=== PATIENT | female | born 1960 | race Caucasian/White ===

== ENCOUNTER 2016-10-02 08:28 | Inpatient (IN) | payer OTHER ==
[2016-09-19 08:09] VITALS: BMI 28.0
--- NOTE | 2016-09-19 08:50 | PAT Medication Instructions ---
Service Date Sep 19, 2016. Current Home Medication List Albuterol (Ventolin), 2 PUFFS INH BID PRN for SOB/Wheezing Albuterol Soln (Proventil 0.083% 2.5MG/3ML), 2.5 MG INH QID PRN for SOB/Wheezing Benzonatate (Tessalon Perles), 1-2 CAP PO Q4 PRN for Cough Clonazepam (Klonopin), 0.5 MG PO HS Fluticasone Propionate (Nasal) (Flonase Allergy Relief), 2 SPRAY CABRERA DAILY PRN for PRN Omeprazole (Prilosec), 20 MG PO BID Oxcarbazepine (Trileptal), 600 MG PO BID Promethazine (Phenergan), 25 MG PO Q6HR PRN Tamoxifen Citrate (Tamoxifen Citrate), 20 MG PO QAM Tizanidine (Zanaflex), 4 MG PO TID PRN for Muscle Spasms Venlafaxine Hcl (Effexor), 75 MG PO BID Medication Instructions For Your Scheduled Surgery - Hold the following medications the morning of surgery: Tizanidine (Zanaflex), 4 MG PO TID PRN for Muscle Spasms Benzonatate (Tessalon Perles), 1-2 CAP PO Q4 PRN for Cough - Take the following medications the morning of surgery with a sip of water: Venlafaxine Hcl (Effexor), 75 MG PO BID Omeprazole (Prilosec), 20 MG PO BID Promethazine (Phenergan), 25 MG PO Q6HR PRN (only take if absolutely needed) Fluticasone Propionate (Nasal) (Flonase Allergy Relief), 2 SPRAY CABRERA DAILY PRN for PRN Tamoxifen Citrate (Tamoxifen Citrate), 20 MG PO QAM (not told to stop by surgeon) Albuterol (Ventolin), 2 PUFFS INH BID PRN for SOB/Wheezing (bring with you to hospital on day of surgery) Albuterol Soln (Proventil 0.083% 2.5MG/3ML), 2.5 MG INH QID PRN for SOB/ Wheezing (if needed) Oxcarbazepine (Trileptal), 600 MG PO BID - Take the following medications as scheduled the night before surgery: Venlafaxine Hcl (Effexor), 75 MG PO BID Tizanidine (Zanaflex), 4 MG PO TID PRN for Muscle Spasms Omeprazole (Prilosec), 20 MG PO BID Clonazepam (Klonopin), 0.5 MG PO HS Benzonatate (Tessalon Perles), 1-2 CAP PO Q4 PRN for Cough Albuterol (Ventolin), 2 PUFFS INH BID PRN for SOB/Wheezing (if needed) Albuterol Soln (Proventil 0.083% 2.5MG/3ML), 2.5 MG INH QID PRN for SOB/ Wheezing (if needed) Oxcarbazepine (Trileptal), 600 MG PO BID If you have any questions please call us at [phone] or [phone] ( Janna) or [phone]
--- NOTE | 2016-09-19 09:22 | DIAGNOSTIC IMAGING REPORT ---
CHEST PREADMISSION(PA/LAT) CLINICAL HISTORY: Preoperative chest COMPARISON STUDY: 07/19/2014 FINDINGS: The cardiac and mediastinal contours are normal. There is no evidence of focal pulmonary consolidation. There is no evidence of failure. No pleural effusions are visualized.[ IMPRESSION: No active disease in the chest. Electronically signed by: Trung Monte M.D. 09/19/2016 9:20 AM Dictated Date/Time: 09/19/2016 9:20 AM
[2016-09-19 09:53] LABS: BASO % 0.4 %; BASO ABS # 0.03 K/uL (0-0.2); COMPLETE YES; HEMATOCRIT 37.4 % (37-47); LYMPH ABS # 2.81 K/uL (1.2-3.4); MEAN CELL VOLUME 89.9 fL (80-100); MEAN CORPUSCULAR HEMOGLOBIN 29.1 pg (25-34); MEAN CORPUSCULAR HGB CONC 32.4 g/dl (32-36); MEAN PLATELET VOLUME 11.1 fL (7.4-10.4); NEUT % 48.6 %; PLATELET COUNT 187 K/uL (130-400); RED BLOOD COUNT 4.16 M/uL (4.2-5.4); WHITE BLOOD COUNT 7.03 K/uL (4.8-10.8)
[2016-09-19 10:04] LABS: PARTIAL THROMBOPLASTIN RATIO 0.9; PROTHROMBIN TIME (PATIENT) 10.5 SECONDS (9.0-12.0)
[2016-09-19 10:10] LABS: BUN/CREATININE RATIO 23.2 (10-20); CALCIUM 8.5 mg/dl (8.5-10.1)
[2016-09-19 10:15] LABS: URINE APPEARANCE CLEAR (CLEAR); URINE BILIRUBIN NEG (NEG); URINE COLOR YELLOW; URINE EPITHELIAL CELL AUTO >30 /lpf (0-5); URINE NITRITE NEG (NEG); URINE SPECIFIC GRAVITY 1.036 (1.000-1.030); UROBILINOGEN NEG (NEG)
[2016-09-19 10:17] LABS: MANUAL MICROSCOPIC REQUIRED? NO; REVIEW REQ? NO
[2016-09-19 10:30] LABS: ESTIMATED AVERAGE GLUCOSE 120 mg/dl; HA1C FLAG Normal (Normal)
--- NOTE | 2016-10-01 14:17 | HISTORY & PHYSICAL EXAMINATION ---
DATE OF ADMISSION: 10/02/2016 CHIEF COMPLAINT: Left total knee instability. HISTORY OF PRESENT ILLNESS: The patient is a 56-year-old female who had bilateral total knee arthroplasties performed by an outside physician. Recently, she had an episode of left knee instability where her left knee jumped the post and became stuck in a dislocated position. She had to have this subsequently reduced. She came to Dr. Clark for a second opinion. The decision was made to do a left TKA poly change in an effort to eliminate this instability. 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 PAST SURGICAL HISTORY: Cholecystectomy, thoracic and lumbar spinal fusions x2. MEDICATIONS: Include Phenergan 25 mg q. 6 hours p.r.n. nausea, Klonopin 0.5 mg at bedtime, Trileptal 300 mg twice daily, tizanidine HCL 4 mg 3 times daily p.r.n., tramadol 50 mg q. 8 hours p.r.n., Flonase 2 sprays each nostril daily p.r.n., Proventil 4 times daily, benzonatate 200 mg 3 times daily p.r.n. cough, and Prilosec 20 mg 2 times daily. ALLERGIES: ADHESIVE TAPE, ENVIRONMENTAL ALLERGIES, GABAPENTIN, HYDROMORPHONE, LIPITOR, MORPHINE, ORPHENADRINE CITRATE, AND PREGABALIN. SOCIAL HISTORY AND REVIEW OF SYSTEMS: Noncontributory. PHYSICAL EXAMINATION: GENERAL: Well-nourished and well-developed female who appears her stated age. HEENT: Normocephalic and atraumatic, extraocular movements intact, oropharynx pink and moist. NECK: Supple without adenopathy. LUNGS: Clear to auscultation bilaterally. HEART: Regular rate and rhythm. ABDOMEN: Soft, nontender, nondistended, obese. EXTREMITIES: The upper extremity within normal limits. The left knee demonstrates a well-healed midline incision from her previous arthroplasty. Her knee range of motion is approximately 0-120 degrees. X-RAYS: X-rays were reviewed. She has bilateral Biomet type knee arthroplasties in place. There are no obvious deformities, abnormalities, or lucencies on x-ray. ASSESSMENT: Left total knee instability. PLAN: Risks versus benefits were discussed. Consent was obtained. The patient's primary care physician is Dr. Estrella Jiménez. We will proceed with left total knee revision tibial poly upon preop workup and medical clearance.
[~2016-10-02] VITALS: Ht 193 cm; Wt 104.8 kg
[2016-10-02] VITALS (8 sets, daily range): BP systolic 95–135; BP diastolic 53–78; PULSE 55–76; TEMP 36.4–36.8; O2SAT 94–100; Ht 193 cm; Wt 104.8 kg
[2016-10-02] MEDS: TRANEXAMIC ACID INJ 1,000 MG in SODIUM CHLORIDE 0.9% 100ML 100 ML IV SCH ×2 (06:30→09:56)
--- NOTE | 2016-10-02 07:56 | History & Physical Bridge Note ---
H&P Re-Evaluation Bridge Note: I have examined the patient, reviewed the History & Physical and in the interval since the performance of the History & Physical I have noted the following changes of clinical significance: No changes noted
[~2016-10-02 08:28] MED LIST: ACETAMINOPHEN 500 MG TAB PO SCH; ALBU0.08 INH; ALBUAER2 INH; BENZ100C84 PO; BUPIVACAINE 0.5 % 5 MG/1 ML PF 10ML VIAL ONE; BUPIVACAINE/EPINEPHRINE 0.25% 1:200,000 30 ML VIAL ONE; CEFAZOLIN 2000 MG/60 ML D5W IV SCH; CLON0.5T3 PO; DEXAMETHASONE 4 MG TAB PO SCH; DEXAMETHASONE SOD INJ 4 MG/ML VIAL ONE; FAMOTIDINE 20 MG TAB PO SCH; FLUT0.15 NAE; GABAPENTIN 300 MG CAP PO SCH; LACTATED RINGER'S 1000ML 1,000 ML IV SCH; LACTATED RINGER'S 1000ML 500 ML IV ONE; LACTATED RINGER'S 1000ML IV SCH; METOCLOPRAMIDE HCL 10 MG TAB PO SCH; OMEP20CA9 PO; OXCA300T PO; PROM25TA PO; ROPIVACAINE 5MG/ML 30 ML 150 MG, BUPIVACAINE/EPINEPHR 0.5% MPF 30 ML, KETOROLAC TROMETH... INFIL SCH; TAMO10TA25 PO; TIZA4CAP PO; VENL75TA4 PO
[2016-10-02] MEDS ORDERED: MIDAZOLAM HCL 1 MG/ML 2ML VIAL ONE ×2 (08:32→10:18)
[2016-10-02] MEDS ORDERED: FENTANYL CITRATE INJ 50 MCG/1 ML 2 ML VIAL ONE ×2 (08:32→12:10)
[2016-10-02] MEDS ORDERED: POVIDONE-IODINE OP SOLN 30 ML BTL ONE (09:40)
[2016-10-02] MEDS ORDERED: BACITRACIN 50000 UNIT VIAL ONE (09:41)
[2016-10-02] MEDS ORDERED: BUPIVACAINE/EPINEPHRINE 0.5% MPF 1:200,000 30 ML VIAL ONE (10:23)
[2016-10-02] MEDS ORDERED: PROPOFOL IV EMULSION 10 MG/ML 20 ML VIAL IV ONE (10:27)
[2016-10-02] MEDS ORDERED: LIDOCAINE HCL 2% 2 ML VIAL (20MG/ML) ONE (10:27)
[2016-10-02] MEDS ORDERED: EpHEDrine SULFATE INJ 50 MG/ML AMP IV PRN (11:15)
[2016-10-02] MEDS ORDERED: FENTANYL CITRATE INJ 50 MCG/1 ML 2 ML VIAL IV PRN (11:15)
[2016-10-02] MEDS ORDERED: ATROPINE SULFATE 0.1 MG/ML 5ML SYR IV PRN (11:15)
[2016-10-02] MEDS ORDERED: ONDANSETRON INJ 2 MG/ML 2 ML VIAL IV PRN ×2 (11:15→11:30)
[2016-10-02] MEDS ORDERED: FLUTICASONE PROPIONATE NA SPR 16 GM BTL NAE PRN (11:30)
[2016-10-02] MEDS ORDERED: ALBUTEROL HFA 8 GM INHALER INH PRN (11:30)
[2016-10-02] MEDS ORDERED: ZOLPIDEM TARTRATE 5 MG TAB PO PRN (11:30)
[2016-10-02] MEDS ORDERED: MAGNESIUM HYDROXIDE SUSP 30 ML UDC PO PRN (11:30)
[2016-10-02] MEDS ORDERED: ALUMINUM/MAGNESIUM/SIMETH (MAALOX MAX) 30 ML UDC PO PRN (11:30)
[2016-10-02] MEDS ORDERED: ALBUTEROL 0.083% NEBU SOLN 3 ML VIAL INH PRN (11:30)
[2016-10-02] MEDS ORDERED: BISACODYL 10 MG SUPP PR PRN (11:30)
[2016-10-02] MEDS ORDERED: DiphenhydrAMINE HCL 50 MG/ML VIAL IV PRN (11:30)
--- NOTE | 2016-10-02 11:34 | OPERATIVE REPORT ---
DATE OF OPERATION: 10/02/2016 PREOPERATIVE DIAGNOSIS: Instability total knee left. POSTOPERATIVE DIAGNOSIS: Instability total knee left. PROCEDURE: Revision polyethylene left total knee. SURGEON: Dr. Clark. POLYSOMNOGRAPH TECH: Nii Christiansen PA-C. Mr. Christiansen was essential for all parts of the case including positioning, prepping, draping, surgical oncologist, wound closure and dressing application. ANESTHESIA: Spinal. COMPLICATIONS: None. OPERATION AND FINDINGS: Following induction of spinal anesthesia, the patient's left leg was prepped and draped in usual sterile manner. Limb was exsanguinated with an Esmarch bandage and tourniquet inflated to 300 mmHg. The knee was evaluated and found to have quite a bit of recurvatum. Longitudinal incision was made. Subcutaneous tissue was sharply dissected. Electrocautery was used for hemostasis. Median parapatellar incision was reopened and the medial face of the tibia was cleared of soft tissue. The locking pin was removed from the tibial component and the tibial poly was removed. The removed polyethylene was a size 12. Trial reductions were carried out up to a size 20, which eliminated the patient's excessive recurvatum. The Vanguard post was chosen as the post to be used. The final tibial poly was reinserted. A locking pin was placed and pulsatile irrigation was used to irrigate the knee and wound was closed with #1 Vicryl [id number] sutures to close the extensor mechanism. Subcutaneous tissue was closed using 0 Dexon, and skin was closed with carol. Sterile dressing of Adaptic, 4x4s, ABDs, sterile Webril and double length Joel was applied. The patient tolerated the procedure well. I attest to the content of the Intraoperative Record and any orders documented therein. Any exceptions are noted below. MTDD
--- NOTE | 2016-10-02 12:26 | DIAGNOSTIC IMAGING REPORT ---
TWO VIEWS LEFT KNEE CLINICAL HISTORY: Postoperative examination. FINDINGS: AP and crosstable lateral portable views of the left knee are obtained. A left knee arthroplasty is in near anatomic alignment. There has been undersurface remodeling of the patella. No acute fracture is seen. There are expected postoperative changes around the knee including skin clips, a surgical drain, soft tissue edema, and subcutaneous gas. IMPRESSION: Expected postoperative changes status post left knee arthroplasty. No acute fracture is seen. Electronically signed by: Jose Archuleta M.D. 10/02/2016 12:25 PM Dictated Date/Time: 10/02/2016 12:24 PM
--- NOTE | 2016-10-02 13:06 | Anesthesiology Progress Note ---
Anesthesia Post Op Note Date & Time Oct 02, 2016 at 13:07 Vital Signs Pain Intensity: 2 Vital Signs Past 12 Hours Date Time Temp Pulse Resp B/P Pulse Ox O2 Delivery O2 Flow Rate FiO2 10/02/16 13:00 58 15 129/74 97 Nasal Cannula 2 10/02/16 12:45 65 16 145/83 98 Nasal Cannula 2 10/02/16 12:30 65 20 130/69 97 Nasal Cannula 2 10/02/16 12:25 36.3 58 15 113/63 96 Nasal Cannula 2 10/02/16 12:15 60 15 121/68 97 Nasal Cannula 2 10/02/16 12:05 58 14 115/72 99 Nasal Cannula 2 10/02/16 11:55 60 14 140/69 99 Nasal Cannula 2 10/02/16 11:45 60 18 135/72 99 Nasal Cannula 2 10/02/16 11:35 68 16 123/66 100 Nasal Cannula 2 10/02/16 11:25 36.2 73 16 125/74 97 Nasal Cannula 2 10/02/16 09:04 36.7 76 18 119/63 96 Room Air Notes Mental Status: alert / awake / arousable, participated in evaluation Pt Amnestic to Procedure: Yes Nausea / Vomiting: adequately controlled Pain: adequately controlled Airway Patency, RR, SpO2: stable & adequate BP & HR: stable & adequate Hydration State: stable & adequate Neuraxial Anesthesia: was administered, sensory block is resolving Anesthetic Complications: no major complications apparent
[2016-10-02] MEDS: OXYCODONE HCL IR 5 MG TAB (IMMEDIATE RELEASE) PO PRN ×2 (14:09→18:03)
[2016-10-02] MEDS: D5W AND 1/2NSS + 20MEQ KCL 1,000 ML IV SCH (16:23)
[2016-10-02] MEDS: HYDROmorphone INJ 0.5 MG/0.5 ML SYR IV PRN (16:42)
[2016-10-02] MEDS: FERROUS GLUCONATE 324 MG TAB PO SCH (18:02)
[2016-10-02] MEDS: CEFAZOLIN IV 2,000 MG in DEXTROSE 5% 50ML 50 ML IV SCH (18:03)
[2016-10-02] MEDS: CLONAZEPAM 0.5 MG TAB PO SCH (21:54)
[2016-10-02] MEDS: OXYCODONE HCL 10 MG TABCR (OXYCONTIN) PO SCH (21:55)
[2016-10-02] MEDS: ACETAMINOPHEN 500 MG TAB PO SCH (21:55)
[2016-10-02] MEDS: PANTOprazole SOD 40 MG TAB PO SCH (21:56)
[2016-10-02] MEDS: OXCARBAZEPINE 150 MG TAB PO SCH (21:56)
[2016-10-02] MEDS: DOCUSATE SODIUM 100 MG CAP PO SCH (21:57)
[2016-10-02] MEDS: VENLAFAXINE HCL 37.5 MG TAB PO SCH (21:57)
[2016-10-02] MEDS: ASPIRIN 81 MG ECTAB PO SCH (21:57)
[2016-10-02] MEDS: SENNA 8.6 MG TAB PO SCH (21:58)
[2016-10-03] MEDS: D5W AND 1/2NSS + 20MEQ KCL 1,000 ML IV SCH (01:27)
[2016-10-03] MEDS: CEFAZOLIN IV 2,000 MG in DEXTROSE 5% 50ML 50 ML IV SCH (01:30)
[2016-10-03 02:55] VITALS: BP 92/51; PULSE 60; TEMP 36.9; O2SAT 93
[2016-10-03] MEDS: OXYCODONE HCL IR 5 MG TAB (IMMEDIATE RELEASE) PO PRN ×3 (04:22→17:00)
[2016-10-03] MEDS: ACETAMINOPHEN 500 MG TAB PO SCH ×3 (06:13→21:19)
[2016-10-03 07:08] LABS: HEMATOCRIT 32.3 % (37-47); MEAN CELL VOLUME 86.8 fL (80-100); MEAN CORPUSCULAR HEMOGLOBIN 28.8 pg (25-34); MEAN CORPUSCULAR HGB CONC 33.1 g/dl (32-36); MEAN PLATELET VOLUME 10.5 fL (7.4-10.4); PLATELET COUNT 178 K/uL (130-400); RED BLOOD COUNT 3.72 M/uL (4.2-5.4)
--- NOTE | 2016-10-03 07:27 | Orthopedic Progress Note ---
Orthopedic Progress Note Date of Service Oct 03, 2016. Subjective Post OP Day: 1 Reports: feeling well Objective N/V intact, dressing C/D/I (Hemovac in place), toes mobile Date Time Temp Pulse Resp B/P Pulse Ox O2 Delivery O2 Flow Rate FiO2 10/03/16 02:55 36.9 60 16 92/51 93 CPAP 10/02/16 23:56 60 18 95 BiPAP/CPAP 21 10/02/16 23:50 Room Air CPAP 10/02/16 23:26 36.6 66 16 95/53 94 CPAP 10/02/16 19:32 36.6 58 18 129/78 95 Room Air 10/02/16 19:20 Room Air 10/02/16 16:15 Room Air 10/02/16 16:02 36.4 55 18 116/70 100 Nasal Cannula 2.0 10/02/16 14:15 36.8 61 18 133/77 100 Nasal Cannula 2.0 10/02/16 13:45 36.6 57 19 135/70 99 Nasal Cannula 2.0 10/02/16 13:15 Nasal Cannula 2.0 10/02/16 13:15 Nasal Cannula 2.0 10/02/16 13:15 36.6 63 18 113/68 98 Nasal Cannula 2.0 10/02/16 13:00 58 15 129/74 97 Nasal Cannula 2 10/02/16 12:45 65 16 145/83 98 Nasal Cannula 2 10/02/16 12:30 65 20 130/69 97 Nasal Cannula 2 10/02/16 12:25 36.3 58 15 113/63 96 Nasal Cannula 2 10/02/16 12:15 60 15 121/68 97 Nasal Cannula 2 10/02/16 12:05 58 14 115/72 99 Nasal Cannula 2 10/02/16 11:55 60 14 140/69 99 Nasal Cannula 2 10/02/16 11:45 60 18 135/72 99 Nasal Cannula 2 10/02/16 11:35 68 16 123/66 100 Nasal Cannula 2 10/02/16 11:25 36.2 73 16 125/74 97 Nasal Cannula 2 10/02/16 09:04 36.7 76 18 119/63 96 Room Air Laboratory Results 24 Hours: Test 10/03/16 06:38 Hematocrit 32.3 % Hemoglobin 10.7 g/dL Assessment & Plan Assessment: 56 yo female stable POD #1 s/p left TKA poly change for knee instability Plan: 1. Med management 2. DVT prophylaxis- ASA, TEDs, SCDs 3. PT/OT 4. D/C planning: home w/ HH ADDENDUM: Pt seen at 1350. Still rating her pain at 8/10. She was able to do her PT today but she is still requiring IV pain medication. Will bump up her Oxycontin to 20 bid and plan for dc to home tomorrow if her pain is controlled. TBPA-C
[2016-10-03] MEDS ORDERED: OXYSR10 PO (07:31)
[2016-10-03] MEDS ORDERED: ACET-1138 PO (07:31)
[2016-10-03] MEDS ORDERED: ASPEC81 PO (07:31)
[2016-10-03] MEDS ORDERED: RXC5 PO (07:31)
--- NOTE | 2016-10-03 07:39 | Discharge Instructions ---
Discharge Instructions Admission Reason for Admission: Left Knee Instability Discharge Discharge Diagnosis / Problem: Left TKA instability Discharge Goals Goal(s): Decrease discomfort, Improve function Activity Recommendations Activity Limitations: as noted below Weightbearing Status: Left weightbearing (as tolerated) . Instructions / Follow-Up Instructions / Follow-Up ACTIVITY RECOMMENDATIONS: SELF CARE INSTRUCTIONS AFTER TOTAL KNEE REPLACEMENT A. You may need to continue a physical therapy program after discharge from the hospital. There are several options available to you. Your doctor will assist you in selecting the best one for you. 1. An out-patient facility 2 to 3 times a week for therapy or home therapy. 2. Continue working on all exercises taught to you in the hospital. Your goals should be to increase bending of your knee to 90 degrees and beyond and to fully straighten your knee. B. You may progress at your own pace from walking with a walker or crutches to a cane; then to no assistive devices. C. Make walking a part of your daily routine. Be up as much as comfortable with rest periods throughout the day. Rest with leg elevation is very important. Use the ice wrap frequently for the first 3-4 weeks. D. There are no restrictions on activities. You may ride in a car, shop, participate in qc chemist and all social activities. E. Wear the long elastic stockings (PAULINO hose) 20 hours a day for 2 weeks after surgery. They can be removed several times a day for laundering and for a bath. F. You may shower, no tub baths until cleared by your doctor. SPECIAL CARE INSTRUCTIONS: VERY IMPORTANT TO READ AND REVIEW A. There are a few signs you need to watch for after you are home. Call [facility] if you notice any of the followin. Increased severe knee pain. Some pain is expected especially when you exercise. 2. Increased swelling in your leg or knee; pain or swelling of the calf muscle in either lower leg. 3. Any fluid drainage from the incision. 4. Shortness of breath or chest pain. B. Please call [facility] at if you have any concerns or questions about your operation or recovery. The doctor or his nurse will return your call promptly. C. You must take antibiotics before dental work, bladder, bowel or other surgery. Your doctor will provide you with a permanent care to carry describing this precaution. IMPORTANT: * REMEMBER TO TAKE ASPIRIN, 81 MG, TWICE DAILY FOR 4 WEEKS UNLESS OTHERWISE DIRECTED. THIS IS YOUR BLOOD THINNER. * HIGH RISK PATIENTS MAY BE PRESCRIBED A STRONGER BLOOD THINNER. THIS WILL BE PROVIDED AT DISCHARGE. * CALL IF INCREASED PAIN, REDNESS, DRAINAGE OR FEVER GREATER THAT 101. * WEAR PAULINO HOSE 20 HOURS PER DAY FOR 2 WEEKS. * D/C dressing in 48 hours and pt may shower, apply light dressing as necessary. FOLLOW UP VISIT: If appointment is not already scheduled: Pt has followup appointment scheduled for 2 weeks after surgery. Call as needed. Current Hospital Diet Patient's current hospital diet: Regular Diet Discharge Diet Recommended Diet: Regular Diet Procedures Procedures Performed: left knee revision tibial poly exchange Pending Studies Studies pending at discharge: no Laboratory Results Hemoglobin A1c Test 09/19/16 08:59 Range/Units Estimated Average Glucose 120 mg/dl Hemoglobin A1c 5.8 H 4.5-5.6 % Medical Emergencies . Who to Call and When: Medical Emergencies: If at any time you feel your situation is an emergency, please call 911 immediately. . Non-Emergent Contact Non-Emergency issues call your: Surgeon Call Non-Emergent contact if: temperature is above 101.5, your pain is not controlled, wound has increased drainage, wound has increased redness . "Provider Documentation" section prepared by Ross Elias PA-C. VTE Core Measure Inpt VTE Proph given/why not?: Other Anticoagulation (ASA 81mg bid), T.E.D. Stockings, SCD's [place] Drug Monitoring Program Search Results: patient reviewed within database, no issues identified
[2016-10-03] MEDS: HYDROmorphone INJ 0.5 MG/0.5 ML SYR IV PRN ×3 (07:41→22:41)
[2016-10-03 07:43] LABS: BUN/CREATININE RATIO 17.8 (10-20); CALCIUM 8.4 mg/dl (8.5-10.1); CREATININE 0.98 mg/dl (0.60-1.20); POTASSIUM 4.2 mmol/L (3.5-5.1)
[2016-10-03 08:03] VITALS: BP 124/62; PULSE 55; TEMP 36.7; O2SAT 95
--- NOTE | 2016-10-03 08:17 | Anesthesiology Progress Note ---
Anesthesia Post Op Note Date & Time Oct 03, 2016 at 08:17 Vital Signs Pain Intensity: 9.0 Vital Signs Past 12 Hours Date Time Temp Pulse Resp B/P Pulse Ox O2 Delivery O2 Flow Rate FiO2 10/03/16 08:03 36.7 55 16 124/62 95 Room Air 10/03/16 07:50 Room Air 10/03/16 02:55 36.9 60 16 92/51 93 CPAP 10/02/16 23:56 60 18 95 BiPAP/CPAP 21 10/02/16 23:50 Room Air CPAP 10/02/16 23:26 36.6 66 16 95/53 94 CPAP Notes Mental Status: alert / awake / arousable, participated in evaluation Pt Amnestic to Procedure: Yes Nausea / Vomiting: adequately controlled Pain: adequately controlled Airway Patency, RR, SpO2: stable & adequate BP & HR: stable & adequate Hydration State: stable & adequate Neuraxial Anesthesia: sensory block resolved Anesthetic Complications: no major complications apparent
[2016-10-03 08:18] VITALS: O2SAT 95
[2016-10-03] MEDS: FERROUS GLUCONATE 324 MG TAB PO SCH ×3 (08:42→17:49)
[2016-10-03] MEDS: ASPIRIN 81 MG ECTAB PO SCH ×2 (08:42→21:18)
[2016-10-03] MEDS: DOCUSATE SODIUM 100 MG CAP PO SCH ×2 (08:42→21:18)
[2016-10-03] MEDS: OXCARBAZEPINE 150 MG TAB PO SCH ×2 (08:43→21:18)
[2016-10-03] MEDS: OXYCODONE HCL 10 MG TABCR (OXYCONTIN) PO SCH ×2 (08:43→21:18)
[2016-10-03] MEDS: VENLAFAXINE HCL 37.5 MG TAB PO SCH ×2 (08:43→21:18)
[2016-10-03] MEDS: MULTIVITAMIN TAB PO SCH (08:43)
[2016-10-03] MEDS: PANTOprazole SOD 40 MG TAB PO SCH ×2 (08:43→21:18)
[2016-10-03] MEDS: TAMOXIFEN CITRATE 10 MG TAB PO SCH (08:46)
[2016-10-03 12:15] VITALS: BP 120/64; PULSE 62; TEMP 36.8; O2SAT 94
[2016-10-03 15:01] VITALS: BP 118/66; PULSE 63; TEMP 36.8; O2SAT 93
[2016-10-03] MEDS: CLONAZEPAM 0.5 MG TAB PO SCH (21:18)
[2016-10-03] MEDS: SENNA 8.6 MG TAB PO SCH (22:38)
[2016-10-03 23:10] VITALS: BP 127/72; PULSE 62; TEMP 36.9; O2SAT 93
[2016-10-04] MEDS: ACETAMINOPHEN 500 MG TAB PO SCH (05:52)
[2016-10-04] MEDS: OXYCODONE HCL IR 5 MG TAB (IMMEDIATE RELEASE) PO PRN ×2 (05:52→10:08)
[2016-10-04 07:26] VITALS: BP 130/74; PULSE 61; TEMP 36.7; O2SAT 93
--- NOTE | 2016-10-04 07:58 | Orthopedic Progress Note ---
Orthopedic Progress Note Date of Service Oct 04, 2016. Subjective Post OP Day: 2 Reports: feeling well, Denies: complaints Additional Notes: Pain control is much better today. No other complaints. Hoping to go home today. Objective calves soft nontender, N/V intact, incision C/D/I, A&O x3, toes mobile Date Time Temp Pulse Resp B/P Pulse Ox O2 Delivery O2 Flow Rate FiO2 10/04/16 07:26 36.7 61 16 130/74 93 Room Air 10/04/16 00:25 CPAP 10/03/16 23:10 36.9 62 18 127/72 93 CPAP 10/03/16 15:15 Room Air 10/03/16 15:01 36.8 63 18 118/66 93 Room Air 10/03/16 12:15 36.8 62 16 120/64 94 Room Air 10/03/16 08:18 95 Room Air 10/03/16 08:03 36.7 55 16 124/62 95 Room Air Assessment & Plan Assessment: 56 yo female stable POD #2 s/p left TKA poly change for knee instability Plan: 1. Med management 2. DVT prophylaxis- ASA, TEDs, SCDs 3. PT/OT 4. D/C planning: home w/ HH ADDENDUM: Pt seen at 1350. Still rating her pain at 8/10. She was able to do her PT today but she is still requiring IV pain medication. Will bump up her Oxycontin to 20 bid and plan for dc to home tomorrow if her pain is controlled. TBPA-C Inhouse Planning Pain Management: Oxycontin, Morphine, PO Tylenol, Oxy IR DVT Prophylaxis: TEDs, SCDs, ASA Discharge Planning Discharge Planning: home with home health Pain Management: Oxycontin, Oxy IR DVT Prophylaxis: TEDs, ASA Therapy: Physical Therapy
[2016-10-04] MEDS ORDERED: OXYSR/20 PO (08:02)
[2016-10-04] MEDS: FERROUS GLUCONATE 324 MG TAB PO SCH (08:41)
[2016-10-04] MEDS: OXYCODONE HCL 10 MG TABCR (OXYCONTIN) PO SCH (08:45)
[2016-10-04] MEDS: MULTIVITAMIN TAB PO SCH (08:45)
[2016-10-04] MEDS: TAMOXIFEN CITRATE 10 MG TAB PO SCH (08:46)
[2016-10-04] MEDS: ASPIRIN 81 MG ECTAB PO SCH (09:03)
[2016-10-04] MEDS: DOCUSATE SODIUM 100 MG CAP PO SCH (09:03)
[2016-10-04] MEDS: OXCARBAZEPINE 150 MG TAB PO SCH (09:04)
[2016-10-04] MEDS: VENLAFAXINE HCL 37.5 MG TAB PO SCH (09:04)
[2016-10-04] MEDS: PANTOprazole SOD 40 MG TAB PO SCH (09:04)
[2016-10-04 10:17] VITALS: BP 130/74; PULSE 61; TEMP 36.7; O2SAT 93
--- NOTE | 2016-10-08 14:51 | DISCHARGE SUMMARY ---
DISCHARGE DIAGNOSIS: Instability, left total knee arthroplasty. SECONDARY DIAGNOSES: Spondylolysis, gastroesophageal reflux disease, hyperlipidemia, mild obstructive sleep apnea, chronic obstructive pulmonary disease, peripheral neuropathy associated with spinal stenosis, atypical ductal hyperplasia of the breast. CONSULTS: None. COMPLICATIONS: None. PROCEDURES: Revision polyethylene bearing, left total knee by Dr. Clark on 10/02/2016. BRIEF HISTORY: As dictated in the history and physical. HOSPITAL SUMMARY: The patient was admitted on the above date and had the above-noted surgery performed which she tolerated well. On her first postoperative day, she was feeling well. Neurovascularly intact. Dressings clean, dry and intact. Toes were mobile. Vital signs stable. Blood pressure was running somewhat low at 92/51, but patient was remaining asymptomatic. Hemoglobin was 10.7 and she was started on physical therapy protocol and continued on DVT prophylaxis. I saw patient later around discharge at 2:00 in the afternoon, she was still rating her pain an 8/10 and she was able to do her physical therapy but she was requiring IV pain medication. Plans were to increase her OxyContin to 20 mg p.o. b.i.d. and plan for discharge to home the following day. By her second postoperative day, she was feeling well and had no complaints. Pain control was much better, and she was hoping to go home. Calves were soft and nontender. Neurovascularly intact. Incision was clean, dry and intact. Toes were mobile. Vital signs were stable. She was afebrile. She was progressing well with physical therapy and it was felt that she could be discharged to home. For further review, please see chart. LAB AND X-RAY DATA: As per chart. DISCHARGE INSTRUCTIONS: The patient was discharged to home in satisfactory condition on 10/04/2016. DIET: Regular. ACTIVITY: Weightbearing as tolerated left lower extremity. Follow TK instruction sheets and special care instructions as noted. Follow up with Dr. Clark in 2 weeks. The patient to call for appointment if one has not been made for you. DISCHARGE MEDICATIONS: Acetaminophen 1000 mg p.o. q. 8 hours, aspirin 81 mg p.o. b.i.d., oxycodone 5-10 mg p.o. q. 4-6 hours p.r.n., OxyContin 20 mg 1 tab p.o. b.i.d., resume taking albuterol 2 puffs inhaled b.i.d., albuterol solution per nebulizer 2.5 mg inhaled q.i.d. p.r.n., Tessalon Perles 100 mg 1-2 caps p.o. q. 4 hours p.r.n., clonazepam 0.5 mg p.o. at bedtime, Flonase 50 mcg 2 sprays nasally daily p.r.n., omeprazole 20 mg p.o. b.i.d., Trileptal 600 mg p.o. b.i.d., Phenergan 25 mg p.o. q. 6 hours p.r.n., tamoxifen 20 mg p.o. q.a.m., Zanaflex 4 mg p.o. t.i.d. p.r.n., and Effexor 75 mg p.o. b.i.d.
== END 2016-10-04 11:32 | disposition home health service (06) | DRG 489 ==
LOC: ENRESERVTM → ENRESERVDT → C.ACU 08:28 → C.3E 10:00
PROC: 0SPD09Z Removal of Liner from Left Knee Joint, Open Approach (ICD-10-PCS; principal; 2016-10-02 10:15)
PROC: 0SUW09Z Supplement Left Knee Joint, Tibial Surface with Liner, Open Approach (ICD-10-PCS; principal; 2016-10-02 10:15)
DX: T84.023A Instability of internal left knee prosthesis, initial encounter (principal); Y83.1 Surgical operation with implant of artificial internal device as the cause of abnormal reaction of the patient, or of later complication, without mention of misadventure at the time of the procedure; K21.9 Gastro-esophageal reflux disease without esophagitis; G47.33 Obstructive sleep apnea (adult) (pediatric); J44.9 Chronic obstructive pulmonary disease, unspecified; G62.9 Polyneuropathy, unspecified; M48.00 Spinal stenosis, site unspecified; Z98.1 Arthrodesis status; Z79.899 Other long term (current) drug therapy

== ENCOUNTER 2018-03-24 10:23 | Emergency (ER) | payer OTHER ==
[~2018-03-24] VITALS: Ht 193 cm; Wt 101.4 kg
[~2018-03-24 10:23] MED LIST changes: +ACET-1138 PO; -ACETAMINOPHEN 500 MG TAB PO SCH; +ASPI-320 PO; -BUPIVACAINE 0.5 % 5 MG/1 ML PF 10ML VIAL ONE; -BUPIVACAINE/EPINEPHRINE 0.25% 1:200,000 30 ML VIAL ONE; -CEFAZOLIN 2000 MG/60 ML D5W IV SCH; -CLON0.5T3 PO; +CLON0.5T9 PO; -DEXAMETHASONE 4 MG TAB PO SCH; -DEXAMETHASONE SOD INJ 4 MG/ML VIAL ONE; -FAMOTIDINE 20 MG TAB PO SCH; -GABAPENTIN 300 MG CAP PO SCH; -LACTATED RINGER'S 1000ML 1,000 ML IV SCH; -LACTATED RINGER'S 1000ML 500 ML IV ONE; -LACTATED RINGER'S 1000ML IV SCH; -METOCLOPRAMIDE HCL 10 MG TAB PO SCH; +OXYSR/20 PO; -ROPIVACAINE 5MG/ML 30 ML 150 MG, BUPIVACAINE/EPINEPHR 0.5% MPF 30 ML, KETOROLAC TROMETH... INFIL SCH; +RXC5 PO; -TAMO10TA25 PO; +TAMO10TA9 PO
[2018-03-24 10:29] VITALS: TEMP 36.8; Ht 193 cm; Wt 101.4 kg
[2018-03-24] MEDS ORDERED: KETOROLAC TROMETHAMINE 60 MG/2 ML VIAL IM STA (10:36)
[2018-03-24] MEDS ORDERED: HYDROmorphone INJ 1 MG/ML SYR IM STA (10:36)
[2018-03-24] MEDS ORDERED: ONDANSETRON 4MG OD TAB PO STA (10:36)
--- NOTE | 2018-03-24 10:38 | EMERGENCY ROOM VISIT NOTE ---
History Report prepared by Radha: Shashi Orr Under the Supervision of: Dr. Tung Hdz M.D. First contact with patient: 10:31 Chief Complaint: KNEEPAIN Stated Complaint: KNEE PAIN History of Present Illness The patient is a 58 year old female who presents to the Emergency Room with complaints of constant left knee pain that began shortly prior to arrival. The patient states that the pain started in the knee while she was walking across the parking lot today. She described the onset of pain as "cramping up" and notes that the pain is now worsened with movement. She did have a total knee replacement in 2015, with a subsequent revision in 2017. She has not had any issues with the joint since 2017. Source of History: patient Onset: Shortly [employer] Position: leg (left knee) Quality: cramping Timing: constant Modifying Factors (Worsening): movement Review of Systems See HPI for pertinent positives & negatives. A total of 10 systems reviewed and were otherwise negative. Past Medical & Surgical Medical Problems: (1) H/O: Bilateral knee replacements (2) Left TKA Instability (3) Migraine headaches (4) Neuropathy (5) Osteoarthritis Family History Cancer FH: heart disease Social History Smoking Status: Current Every Day Smoker Alcohol Use: none Marital Status: single Occupation Status: unemployed Current/Historical Medications Scheduled Clonazepam (Klonopin), 0.5 MG PO HS Ezetimibe (Ezetimibe), 10 MG PO DAILY Omeprazole (Prilosec), 20 MG PO BID Umeclidinium [place] (Incruse Ellipta), 2 PUFFS INH AMPM Scheduled PRN Acetaminophen (Tylenol), 1,000 MG PO UD PRN for Pain Albuterol Hfa (Ventolin Hfa), 2 PUFFS INH BID PRN for SOB/Wheezing Albuterol Sulf (Proventil 0.083% 2.5MG/3ML), 2.5 MG INH QID PRN for SOB/Wheezing Benzonatate (Tessalon Perles), 1-2 CAP PO Q4 PRN for Cough Fluticasone Propionate (Nasal) (Flonase Allergy Relief), 2 SPRAY CABRERA DAILY PRN for PRN Hydrocodone/Acetaminophen 5MG/325MG (Redkey 5MG/325MG), 2 TABLETS PO Q6 PRN for Pain Allergies Coded Allergies: Aspirin (Unverified Allergy, Severe, SWELLING, 03/24/18) SWELLING OF LEGS Atorvastatin (Verified Allergy, Severe, LE swelling and severe SOB , ) [place] Nut (Verified Allergy, Severe, THROAT CLOSES/BREATHING DIFFICULTY, 03/24/18) Ingrid Nut (Verified Allergy, Severe, THROAT CLOSES/BREATHING DIFFICULTY, ) [place] Nut (Verified Allergy, Severe, THROAT CLOSES/BREATHING DIFFICULTY, 03/24/18) Pregabalin (Verified Allergy, Intermediate, swelling, 03/24/18) Morphine (Verified Allergy, Mild, PT TURNED RED AND SEVERE ITCHING, 03/24/18 ) Citalopram (Verified Allergy, Unknown, LE SWELLING, 03/24/18) Ketorolac (Verified Allergy, Unknown, RASH, 03/24/18) Orphenadrine (Verified Allergy, Unknown, Chest swelling and rash, 03/24/18) POLLEN (Verified Allergy, Unknown, BREATHING DIFFICULTY, 03/24/18) Gabapentin (Verified Adverse Reaction, Intermediate, LE swelling, 03/24/18) Adhesives (Verified Adverse Reaction, Unknown, RASH, ITCHING, 03/24/18) Physical Exam Vital Signs Date Time Temp Pulse Resp B/P (MAP) Pulse Ox O2 Delivery O2 Flow Rate FiO2 03/24/18 13:59 48 16 127/60 98 Room Air 03/24/18 13:36 42 12 112/65 97 Room Air 03/24/18 12:27 38 14 97/56 97 Room Air 03/24/18 12:07 39 03/24/18 11:37 Room Air 03/24/18 11:31 56 18 117/60 98 Room Air 03/24/18 10:29 36.8 76 18 115/61 95 Room Air Physical Exam GENERAL: Awake, alert, well-appearing, in no acute distress HENT: Normocephalic, atraumatic. Oropharynx unremarkable. EYES: Normal conjunctiva. Sclera non-icteric. NECK: Supple. No nuchal rigidity. FROM. No JVD. RESPIRATORY: Clear to auscultation. CARDIAC: Regular rate, normal rhythm. Extremities warm and well perfused. Pulses equal. ABDOMEN: Soft, non-distended. No tenderness to palpation. No rebound or guarding. No masses. RECTAL: Deferred. MUSCULOSKELETAL: Chest examination reveals no tenderness. The back is symmetrical on inspection without obvious abnormality. There is no CVA tenderness to palpation. No joint edema. LOWER EXTREMITIES: Calves are equal size bilaterally and non-tender. No edema. No discoloration. NEURO: Normal sensorium. No sensory or motor deficits noted. SKIN: No rash or jaundice noted. Medical Decision & Procedures ER Provider Diagnostic Interpretation: Radiology results as stated below per my review and radiologist interpretation: CHEST ONE VIEW PORTABLE CLINICAL HISTORY: 58 years-old Female presenting with CHEST PAIN. TECHNIQUE: Portable upright AP view of the chest was obtained. COMPARISON: 09/19/2016. FINDINGS: Cardiac silhouette top normal in size. No focal opacity. No large effusion or pneumothorax. Osseous structures normal. Upper abdomen normal. IMPRESSION: 1. No acute cardiopulmonary disease. Electronically signed by: Pablo Henry M.D. 03/24/2018 11:57 AM Dictated Date/Time: 03/24/2018 11:56 AM L FEMUR 2 VIEWS ROUTINE CLINICAL HISTORY: 58 years-old Female presenting with Pt c/o left knee pain . TECHNIQUE: Frontal and lateral views of the left femur were obtained. COMPARISON: None. FINDINGS: Left hip joint congruent. Femoral neck intact. Postsurgical changes of total left knee arthroplasty with patellar resurfacing. Visualized portion of the bony pelvis normal. No acute fracture or malalignment. No advanced degenerative change. No radiographic soft tissue abnormality. IMPRESSION: No acute osseous injury. Electronically signed by: Pablo Henry M.D. 03/24/2018 11:10 AM Dictated Date/Time: 03/24/2018 11:08 AM L KNEE 1 OR 2 VIEWS ROUTINE CLINICAL HISTORY: Left knee pain. COMPARISON: Left knee radiographs October 02, 2016. FINDINGS: Alignment of the total left knee arthroplasty is anatomic. No periprosthetic fracture is identified. There is a large left knee joint effusion without lipohemarthrosis. IMPRESSION: 1. No acute fracture. Anatomic alignment of the total left knee arthroplasty. 2. Large left knee joint effusion. Electronically signed by: Neptali Henry M.D. 03/24/2018 11:08 AM Dictated Date/Time: 03/24/2018 11:07 AM Laboratory Results 03/24/18 12:00 Red Blood Count 4.34, Mean Corpuscular Volume 91.7, Mean Corpuscular Hemoglobin 30.0, Mean Corpuscular Hemoglobin Concent 32.7, Mean Platelet Volume 11.0, Neutrophils (%) (Auto) 50.5, Lymphocytes (%) (Auto) 38.8, Monocytes (%) (Auto) 7.6, Eosinophils (%) (Auto) 2.8, Basophils (%) (Auto) 0.3, Neutrophils # (Auto) 3.11, Lymphocytes # (Auto) 2.39, Monocytes # (Auto) 0.47, Eosinophils # (Auto) 0.17, Basophils # (Auto) 0.02 03/24/18 12:00 Test 03/24/18 12:00 White Blood Count 6.16 K/uL (4.8-10.8) Red Blood Count 4.34 M/uL (4.2-5.4) Hemoglobin 13.0 g/dL (12.0-16.0) Hematocrit 39.8 % (37-47) Mean Corpuscular Volume 91.7 fL (80-100) Mean Corpuscular Hemoglobin 30.0 pg (25-34) Mean Corpuscular Hemoglobin Concent 32.7 g/dl (32-36) Platelet Count 169 K/uL (130-400) Mean Platelet Volume 11.0 fL (7.4-10.4) Neutrophils (%) (Auto) 50.5 % Lymphocytes (%) (Auto) 38.8 % Monocytes (%) (Auto) 7.6 % Eosinophils (%) (Auto) 2.8 % Basophils (%) (Auto) 0.3 % Neutrophils # (Auto) 3.11 K/uL (1.4-6.5) Lymphocytes # (Auto) 2.39 K/uL (1.2-3.4) Monocytes # (Auto) 0.47 K/uL (0.11-0.59) Eosinophils # (Auto) 0.17 K/uL (0-0.5) Basophils # (Auto) 0.02 K/uL (0-0.2) RDW Standard Deviation 50.2 fL (36.4-46.3) RDW Coefficient of Variation 14.8 % (11.5-14.5) Immature Granulocyte % (Auto) 0.0 % Immature Granulocyte # (Auto) 0.00 K/uL (0.00-0.02) D-Dimer 830 ug/L FEU (0-500) Anion Gap 7.0 mmol/L (3-11) Est Creatinine Clear Calc Drug Dose 84.9 ml/min Estimated GFR () 68.8 Estimated GFR (Non- 59.3 BUN/Creatinine Ratio 14.4 (10-20) Calcium Level 9.6 mg/dl (8.5-10.1) Total Bilirubin 0.6 mg/dl (0.2-1) Direct Bilirubin 0.1 mg/dl (0-0.2) Aspartate Amino Transf (AST/SGOT) 17 U/L (15-37) Alanine Aminotransferase (ALT/SGPT) 23 U/L (12-78) Alkaline Phosphatase 90 U/L (45-117) Total Creatine Kinase 116 U/L (26-192) Creatine Kinase MB 1.0 ng/ml (0.5-3.6) Creatine Kinase MB Ratio 0.9 (0-3.0) Troponin I < 0.015 ng/ml (0-0.045) Total Protein 7.9 gm/dl (6.4-8.2) Albumin 3.6 gm/dl (3.4-5.0) Lipase 632 U/L (73-393) Labs reviewed by ED physician. Medications Administered Medications (Trade) Dose Ordered Sig/Paco Route Start Time Stop Time Status Last Admin Dose Admin Hydromorphone HCl (Dilaudid Inj) 1 mg NOW STAT IM 03/24/18 10:36 03/24/18 10:38 DC 03/24/18 10:48 1 MG Ketorolac Tromethamine (Toradol Inj) 60 mg NOW STAT IM 03/24/18 10:36 03/24/18 10:38 DC 03/24/18 10:48 60 MG Ondansetron HCl (Zofran Odt) 4 mg NOW STAT PO 03/24/18 10:36 03/24/18 10:38 DC 03/24/18 10:48 4 MG Sodium Chloride 1,000 ml @ 999 mls/hr Q1H1M STAT IV 03/24/18 11:41 03/24/18 12:41 DC 03/24/18 11:41 999 MLS/HR ECG Per My Interpretation Rate (beats per minute): 45 Rhythm: sinus bradycardia Findings: other (No SREEDHAR/STD) ED Course 1033: Past medical records reviewed. The patient was evaluated in room C5. A complete history and physical examination was performed. 1212: The patient is now complaining of chest pain. 1319: The patient is now telling nursing staff that she would like to go home. 1358: Upon reexamination the patient is resting in bed. I discussed results and treatment plan with the patient. She verbalizes agreement and understanding. The patient is ready for discharge. Medical Decision Prior records reviewed and summarized above. Triage Nursing notes reviewed. Differential diagnosis: Etiologies such as fracture, dislocation, neurovascular compromise, compartment syndrome, soft tissue injury, as well as others were entertained. This is a 58-year-old female who presents emergency department complaining of left knee pain. Patient has a history of knee replacement and follows up with [facility] for this. Patient was given IM Dilaudid and Toradol. After the patient was given the injection she developed epigastric pain that radiated up into her chest. Using shared medical decision making with the patient I strongly suspected that this was a reaction to the medications however the patient would like an EKG as well as cardiac enzymes and d-dimer drawn. Patient's d-dimer was concerning for an elevated level therefore she was sent for CAT scan of the chest. This showed pulmonary nodules. I did discuss this finding with the patient and strongly recommended because she is a smoker she obtain a repeat CAT scan of the chest in 6-12 months. Patient's x- ray of her knee does not show any acute fracture dislocation or subluxation. Her femur is also normal.. Patient was in agreement with the treatment plan. There is also no evidence of knee effusion. Based on these findings I feel the patient can be placed in a knee immobilizer and placed on a walker Medication Reconcilliation Current Medication List: was personally reviewed by me Blood Pressure Screening Patient's blood pressure: Normal blood pressure Impression Primary Impression: Pulmonary nodules Additional Impression: Knee pain Scribe Attestation The scribe's documentation has been prepared under my direction and personally reviewed by me in its entirety. I confirm that the note above accurately reflects all work, treatment, procedures, and medical decision making performed by me. Departure Information Dispostion Home / Self-Care Prescriptions Hydrocodone/Acetaminophen 5MG/325MG (Redkey 5MG/325MG) Tab 2 TABLETS PO Q6 Y for Pain, #14 TAB Prov: Tung dHz MD 03/24/18 Referrals Jiménez, Estrella M., D.O. (PCP) Forms HOME CARE DOCUMENTATION FORM, IMPORTANT VISIT INFORMATION Patient Instructions My [facility] Additional Instructions Need follow up CT of the chest in 6-12 months for pulmonary nodules Follow up with DR Bates's office for chest pain Follow up with Dr Franklin's office for knee pain You received narcotic or benzodiazepene medication while in the emergency room today. This is an addictive medication that may cause drowziness as well as constipation. Do not drive, operate heavy machinery, or drink alcohol under the influence of this medication. Take Redkey for breakthrough pain You have been examined and treated today on an emergency basis only. This is not a substitute for, or an effort to provide, complete comprehensive medical care. It is impossible to recognize and treat all injuries or illnesses in a single emergency department visit. It is therefore important that you follow up closely with Dr Jiménez. Call as soon as possible for an appointment. Thank you for your time and consideration. I look forward to speaking with you again soon. Please don't hesitate to call us if you have any questions. Problem Qualifiers Additional Impression: Knee pain Chronicity: acute Laterality: left Qualified Codes: M25.562 - Pain in left knee
[2018-03-24] MEDS ORDERED: ACET-1256 PO (10:53)
[2018-03-24] MEDS ORDERED: EZET10TA66 PO (10:53)
[2018-03-24] MEDS ORDERED: VNTHFA/IN INH (10:53)
[2018-03-24] MEDS ORDERED: ALBINS/ INH (10:53)
[2018-03-24] MEDS ORDERED: UMEC1INH INH (10:53)
--- NOTE | 2018-03-24 11:10 | DIAGNOSTIC IMAGING REPORT ---
L KNEE 1 OR 2 VIEWS ROUTINE CLINICAL HISTORY: Left knee pain. COMPARISON: Left knee radiographs October 02, 2016. FINDINGS: Alignment of the total left knee arthroplasty is anatomic. No periprosthetic fracture is identified. There is a large left knee joint effusion without lipohemarthrosis. IMPRESSION: 1. No acute fracture. Anatomic alignment of the total left knee arthroplasty. 2. Large left knee joint effusion. Electronically signed by: Neptali Henry M.D. 03/24/2018 11:08 AM Dictated Date/Time: 03/24/2018 11:07 AM
--- NOTE | 2018-03-24 11:11 | DIAGNOSTIC IMAGING REPORT ---
L FEMUR 2 VIEWS ROUTINE CLINICAL HISTORY: 58 years-old Female presenting with Pt c/o left knee pain . TECHNIQUE: Frontal and lateral views of the left femur were obtained. COMPARISON: None. FINDINGS: Left hip joint congruent. Femoral neck intact. Postsurgical changes of total left knee arthroplasty with patellar resurfacing. Visualized portion of the bony pelvis normal. No acute fracture or malalignment. No advanced degenerative change. No radiographic soft tissue abnormality. IMPRESSION: No acute osseous injury. Electronically signed by: Pablo Henry M.D. 03/24/2018 11:10 AM Dictated Date/Time: 03/24/2018 11:08 AM
[2018-03-24] MEDS ORDERED: SODIUM CHLORIDE 0.9% 1000ML 1,000 ML IV STA (11:41)
--- NOTE | 2018-03-24 11:58 | DIAGNOSTIC IMAGING REPORT ---
CHEST ONE VIEW PORTABLE CLINICAL HISTORY: 58 years-old Female presenting with CHEST PAIN. TECHNIQUE: Portable upright AP view of the chest was obtained. COMPARISON: 09/19/2016. FINDINGS: Cardiac silhouette top normal in size. No focal opacity. No large effusion or pneumothorax. Osseous structures normal. Upper abdomen normal. IMPRESSION: 1. No acute cardiopulmonary disease. Electronically signed by: Pablo Henry M.D. 03/24/2018 11:57 AM Dictated Date/Time: 03/24/2018 11:56 AM
[2018-03-24 12:16] LABS: BASO % 0.3 %; BASO ABS # 0.02 K/uL (0-0.2); EOS % 2.8 %; EOS ABS # 0.17 K/uL (0-0.5); HEMATOCRIT 39.8 % (37-47); LYMPH % 38.8 %; LYMPH ABS # 2.39 K/uL (1.2-3.4); MEAN CELL VOLUME 91.7 fL (80-100); MEAN CORPUSCULAR HGB CONC 32.7 g/dl (32-36); MONO % 7.6 %; MONO ABS # 0.47 K/uL (0.11-0.59); NEUT % 50.5 %; NEUT ABS # 3.11 K/uL (1.4-6.5); PLATELET COUNT 169 K/uL (130-400); RED CELL DISTRIBUTION WIDTH CV 14.8 % (11.5-14.5); RED CELL DISTRIBUTION WIDTH SD 50.2 fL (36.4-46.3); WHITE BLOOD COUNT 6.16 K/uL (4.8-10.8)
[2018-03-24 12:40] LABS: ALBUMIN 3.6 gm/dl (3.4-5.0); ALKALINE PHOSPHATASE 90 U/L (45-117); ALT/SGPT 23 U/L (12-78); AST/SGOT 17 U/L (15-37); BLOOD UREA NITROGEN 15 mg/dl (7-18); CALCIUM 9.6 mg/dl (8.5-10.1); CARBON DIOXIDE 27 mmol/L (21-32); CREATININE 1.05 mg/dl (0.60-1.20); GLUCOSE 90 mg/dl (70-99); LIPASE 632 U/L (73-393); POTASSIUM 3.9 mmol/L (3.5-5.1); SODIUM 138 mmol/L (136-145); TOTAL PROTEIN 7.9 gm/dl (6.4-8.2)
[2018-03-24] MEDS ORDERED: OPTIRAY 320 IV PRN (13:00)
--- NOTE | 2018-03-24 13:38 | DIAGNOSTIC IMAGING REPORT ---
CT ANGIOGRAM OF THE CHEST CLINICAL HISTORY: Epigastric abdominal pain. Atypical chest pain. COMPARISON STUDY: Chest x-ray dated 03/24/2018. Chest CT dated 04/01/2010 and 05/28/2017. TECHNIQUE: Following the IV administration of 117 cc of Optiray 320, CT angiogram of the chest was performed from the upper abdomen to the thoracic inlet utilizing the pulmonary embolus protocol. Images are reviewed in the axial, sagittal, and coronal planes. 3-D MIPS images are created and assessed. IV contrast was administered without complication. A dose lowering technique was utilized adhering to the principles of ALARA. CT DOSE: 352.87 mGy.cm FINDINGS: Thyroid: Imaged portions of the thyroid gland are normal in size and attenuation. Thoracic aorta: There is mild atherosclerotic calcification of the thoracic aorta, which is normal in caliber and demonstrates standard 3-vessel arch anatomy. No dissection is seen. Pulmonary vasculature: The pulmonary trunk is normal in caliber. There are no filling defects identified in main, lobar, or segmental pulmonary branches to suggest pulmonary embolus. Heart: The heart is enlarged and without pericardial effusion. Lungs and pleural spaces: Emphysematous change is identified. There is no airspace consolidation or pleural effusion. Dependent atelectasis is observed. Diffuse peribronchial thickening is noted. The trachea and central airways are clear. There is a 5 mm right apical pulmonary nodule seen on axial image #229. A 6 cm pleural-based nodule is seen in the left lower lobe on image 130. At least 4 additional smaller pulmonary nodules are identified (right lower lobe image #96 and #171, left lower lobe image #154 and #159). Mediastinum: There is no mediastinal lymphadenopathy. Erica: Clear. Axillae: There is no axillary lymphadenopathy. Upper abdomen: There is a small hiatal hernia. Partially visualized upper abdominal viscera is otherwise within normal limits. Skeletal structures: No lytic or blastic bony lesions are seen. IMPRESSION: 1. There is no evidence of pulmonary embolus in the main, lobar, or segmental pulmonary arteries. 2. Cardiomegaly and emphysema. 3. There is no airspace consolidation or pleural effusion. 4. Mild diffuse peribronchial thickening suggests reactive airway disease. Clinical correlation will be required. 5. There are scattered pulmonary and pleural-based nodules measuring up to 6 mm. These are pathologically indeterminant, but new from 05/28/2017. These may be on an infectious/inflammatory basis. Follow-up as per the flexor criteria is recommended. See below. 6. Hiatal hernia. 7. Additional findings as above. Please refer to below summary of Fleischner criteria recommendations for follow-up of incidental CT nodules (Rozina Pimentel, Guidelines for management of small pulmonary nodules detected on CT scans: A statement from the Fleischner Society, Radiology 237: [phone].) SOLID NODULES Solitary nodule size: <6 mm * low risk patients: no follow-up needed * high risk patients: optional CT at 12 months Solitary nodule size: 6-8 mm * low risk patients: follow-up at 6-12 months, then consider further follow-up at 18-24 months * high risk patients: initial follow-up CT at 6-12 months and then at 18-24 months if no change Solitary nodule size: >8 mm * either low or high risk patients - consider follow-up CT at 3 months, and/or CT-PET, and/or biopsy Multiple nodules size: <6 mm * low risk patients: no routine follow-up * high risk patients: optional CT at 12 months Multiple nodules size: 6-8 mm * low risk patients: follow-up at 3-6 months, then consider further follow-up at 18-24 months * high risk patients: follow-up at 3-6 months, then at 18-24 months if no change Multiple nodules size: >8 mm * low risk patients: follow-up at 3-6 months, then consider further follow-up at 18-24 months * high risk patients: follow-up at 3-6 months, then at 18-24 months if no change Note: newly detected indeterminate nodule in persons 35 years of age or older. * low risk patients: minimal or absent history of smoking and/or other known risk factors * high risk patients: history of smoking or of other known risk factors (e.g. first degree relative with lung cancer, or exposure to asbestos, radon, uranium) * if a nodule up to 8 mm is partly solid or is ground glass further follow-up is required after 24 months to exclude possible slow growing adenocarcinoma ([place]) SUBSOLID NODULES Solitary pure ground-glass nodule * nodule size <6 mm - no CT follow-up required * nodule size >=6 mm - follow-up CT at 6-12 months, then every 2 years until 5 years Solitary part-solid nodule * nodule size <6 mm - no CT follow-up required * nodule size >=6 mm - follow-up CT at 3-6 months. If unchanged, and solid component remains <6 mm, then annual follow-up for 5 years Multiple subsolid nodules * nodule size <6 mm - follow-up CT at 3-6 months, consider further follow-up at 2 and 4 years if stable * nodule size >=6 mm - follow-up CT at 3-6 months, subsequent management based on the most suspicious nodule(s) Electronically signed by: Jose Archuleta M.D. 03/24/2018 1:37 PM Dictated Date/Time: 03/24/2018 1:25 PM
[2018-03-24] MEDS ORDERED: HYDR-5688 PO (13:53)
[2018-03-24 13:59] VITALS: BP 127/60; PULSE 48; O2SAT 98
== END 2018-03-24 14:19 | disposition home or self-care (01) ==
LOC: EDBD 10:23 → C.EDC 10:24
DX: M25.562 Pain in left knee (principal); R91.8 Other nonspecific abnormal finding of lung field; Z96.652 Presence of left artificial knee joint; F17.200 Nicotine dependence, unspecified, uncomplicated; Z88.4 Allergy status to anesthetic agent; Z88.8 Allergy status to other drugs, medicaments and biological substances; Z91.018 Allergy to other foods; Z91.048 Other nonmedicinal substance allergy status

== ENCOUNTER → 2018-04-07 | Outpatient (CLI) | payer OTHER ==
[~2018-04-07] MED LIST changes: -ACET-1138 PO; +ACET-1256 PO; +ALBINS/ INH; -ALBU0.08 INH; -ALBUAER2 INH; -ASPI-320 PO; +EZET10TA66 PO; +HYDR-5688 PO; -OXCA300T PO; -OXYSR/20 PO; -PROM25TA PO; -RXC5 PO; -TAMO10TA9 PO; -TIZA4CAP PO; +UMEC1INH INH; -VENL75TA4 PO; +VNTHFA/IN INH
[2018-04-07 16:38] LABS: BASO % 0.4 %; BASO ABS # 0.03 K/uL (0-0.2); EOS % 3.1 %; EOS ABS # 0.22 K/uL (0-0.5); HEMATOCRIT 40.1 % (37-47); IG# 0.01 K/uL (0.00-0.02); LYMPH % 42.8 %; LYMPH ABS # 3.01 K/uL (1.2-3.4); MEAN CELL VOLUME 91.6 fL (80-100); MEAN CORPUSCULAR HEMOGLOBIN 29.7 pg (25-34); MEAN CORPUSCULAR HGB CONC 32.4 g/dl (32-36); MEAN PLATELET VOLUME 11.4 fL (7.4-10.4); MONO % 10.5 %; MONO ABS # 0.74 K/uL (0.11-0.59); NEUT % 43.1 %; NEUT ABS # 3.03 K/uL (1.4-6.5); PLATELET COUNT 216 K/uL (130-400); RED CELL DISTRIBUTION WIDTH CV 15.2 % (11.5-14.5); RED CELL DISTRIBUTION WIDTH SD 51.5 fL (36.4-46.3); WHITE BLOOD COUNT 7.04 K/uL (4.8-10.8)
== END | disposition home or self-care (01) ==
LOC: C.LAB 15:40
DX: Z96.652 Presence of left artificial knee joint (principal)